=== PATIENT | female | born 1965 | race Caucasian/White ===

== ENCOUNTER 2023-07-12 15:30 | Outpatient (CLI) | payer BC | END 2023-07-12 15:31 | disposition home or self-care (01) | LOC: CSHMAMMO 15:30 | PROVIDERS: ATTEND Family Medicine | DX: Z12.31 Encounter for screening mammogram for malignant neoplasm of breast (principal) | CPT/HCPCS: 77063; 77067 ==

== ENCOUNTER 2024-12-01 08:26 | Outpatient (CLI) | payer BC | END 2024-12-01 08:27 | disposition home or self-care (01) | LOC: CSHSLEEP 08:26 | PROVIDERS: ATTEND Family Medicine | DX: G47.33 Obstructive sleep apnea (adult) (pediatric) (principal); R53.83 Other fatigue; E66.9 Obesity, unspecified; Z68.37 Body mass index [BMI] 37.0-37.9, adult; R06.83 Snoring | CPT/HCPCS: 95800 ==

== ENCOUNTER 2025-02-17 08:55 | Outpatient (CLI) | payer BC | END 2025-02-17 08:56 | disposition home or self-care (01) | LOC: CSHSLEEP 08:55 | PROVIDERS: ATTEND Family Medicine | DX: G47.33 Obstructive sleep apnea (adult) (pediatric) (principal); R53.83 Other fatigue; E66.9 Obesity, unspecified; Z68.37 Body mass index [BMI] 37.0-37.9, adult; R06.83 Snoring | CPT/HCPCS: 95811 ==